=== PATIENT | male | born 1955 | race African-American/Black ===

== ENCOUNTER 2019-09-17 20:32 | Inpatient (IN) ==
[2019-09-17] MEDS ORDERED: 0.9 % Sodium Chloride 1,000 ML IVC ONE (20:39)
[2019-09-17] MEDS ORDERED: methylPREDNISolone 125 MG/2 ML VIAL IVP ONE (20:39)
[2019-09-17] MEDS ORDERED: Ipratropium/Albuterol Neb 3 ML IH ONE (20:39)
[2019-09-17] MEDS ORDERED: levoFLOXacin 750 MG/150 ML 750 MG/150 ML BAG IVPB ONE (20:54)
[2019-09-17 20:56] LABS: Basophils # 0.1 K/mcL (0.0-0.2); Basophils % 0.7 %; Eosinophils # 0.1 K/mcL (0.0-0.6); Eosinophils % 1.3 %; Hematocrit 37.8 % (37.5-50.1); Immature Granulocytes % 0.6 % (0-4); Lymphocytes # 1.8 K/mcL (0.6-4.6); Lymphocytes % 21.1 %; Mean Corpuscular HGB Conc 34.4 g/dL (31.6-35.5); Mean Corpuscular Hemoglobin 30.3 pg (28.0-33.3); Mean Corpuscular Volume 88.1 fL (83.0-100.0); Mean Platelet Volume 10.2 fL (9.4-12.4); Monocytes # 0.7 K/mcL (0.0-1.3); Monocytes % 7.6 %; Neutrophils # 5.9 K/mcL (1.6-8.9); Platelet Count 293 K/mcL (140-400); Red Blood Count 4.29 M/mcL (4.19-5.50); Segmented Neutrophils % 68.7 %; White Blood Count 8.5 K/mcL (4.3-11.1)
[2019-09-17 21:17] LABS: Calcium 9.3 mg/dL (8.6-10.3); Potassium 3.5 mEq/L (3.5-5.1)
[2019-09-17] MEDS ORDERED: *HR* OxyCODONE/APAP 5/325 TABLET PO ONE (21:31)
[2019-09-17] MEDS ORDERED: Albuterol 2.5 MG/3 ML NEBULIZER IH PRN (22:41)
[2019-09-17] MEDS ORDERED: Naloxone 0.4 MG/ML INJ IVP PRN (22:41)
[2019-09-18] MEDS: 0.9 % Sodium Chloride 1,000 ML IVC SCH ×2 (00:15→06:52)
[2019-09-18] MEDS: MethylPREDNISolone 40 MG/ML VIAL IVP SCH ×4 (00:34→17:48)
[2019-09-18] MEDS: Ipratropium/Albuterol Neb 3 ML IH SCH ×6 (00:55→20:41)
[2019-09-18] MEDS: *HR* OxyCODONE/APAP 10/325 TABLET PO PRN ×3 (03:15→17:48)
[2019-09-18] MEDS: Gabapentin 400 MG CAPSULE PO SCH ×3 (09:08→21:04)
[2019-09-18] MEDS: hydrALAZINE 25 MG TABLET PO SCH ×3 (09:08→21:04)
[2019-09-18] MEDS: amLODIPine 5 MG TABLET PO SCH (09:08)
[2019-09-18] MEDS: cefTRIAXone 1,000 MG in 0.9 % Sodium Chloride Mini Bag 100 ML IVPB SCH (09:08)
[2019-09-18] MEDS: Azithromycin 500 MG in 0.9 % Sodium Chloride 250 ML IVPB SCH (09:09)
[2019-09-18] MEDS: Losartan/HCTZ 50-12.5 TABLET PO SCH (09:48)
[2019-09-18] MEDS: Benzonatate 100 MG CAPSULE PO PRN ×2 (14:18→22:10)
[2019-09-18] MEDS: Nicotine 21 MG PATCH.TD24 TD SCH (14:21)
[2019-09-18] MEDS ORDERED: levoFLOXacin 750 MG/150 ML 750 MG/150 ML BAG IVPB SCH (18:00)
[2019-09-18] MEDS: Diclofenac Sodium (DR) 50 MG TABLET.DR PO SCH (21:04)
[2019-09-18] MEDS: Ondansetron ODT 4 MG TAB.RAPDIS SL PRN (21:07)
[2019-09-18] MEDS: Acetaminophen 325 MG TABLET PO PRN (22:10)
[2019-09-19] MEDS: Ipratropium/Albuterol Neb 3 ML IH SCH ×3 (00:37→07:40)
[2019-09-19] MEDS: MethylPREDNISolone 40 MG/ML VIAL IVP SCH ×2 (02:52→06:10)
[2019-09-19] MEDS: Acetaminophen 325 MG TABLET PO PRN (05:09)
[2019-09-19] MEDS: Nicotine 21 MG PATCH.TD24 TD SCH (07:54)
[2019-09-19] MEDS: Losartan/HCTZ 50-12.5 TABLET PO SCH (07:54)
[2019-09-19] MEDS: cefTRIAXone 1,000 MG in 0.9 % Sodium Chloride Mini Bag 100 ML IVPB SCH (07:55)
[2019-09-19] MEDS: Gabapentin 400 MG CAPSULE PO SCH ×2 (07:56→15:10)
[2019-09-19] MEDS: hydrALAZINE 25 MG TABLET PO SCH ×2 (07:56→12:35)
[2019-09-19] MEDS: amLODIPine 5 MG TABLET PO SCH (07:56)
[2019-09-19] MEDS: Diclofenac Sodium (DR) 50 MG TABLET.DR PO SCH (07:56)
[2019-09-19] MEDS: *HR* OxyCODONE/APAP 10/325 TABLET PO PRN ×2 (07:57→18:14)
[2019-09-19 08:04] LABS: Hematocrit 36.1 % (37.5-50.1); Hemoglobin 12.2 g/dL (12.9-16.9); Mean Corpuscular HGB Conc 33.8 g/dL (31.6-35.5); Mean Corpuscular Hemoglobin 29.9 pg (28.0-33.3); Mean Corpuscular Volume 88.5 fL (83.0-100.0); Mean Platelet Volume 10.4 fL (9.4-12.4); Platelet Count 320 K/mcL (140-400); Red Blood Count 4.08 M/mcL (4.19-5.50); Red Cell Distribution Width 13.4 % (11.5-14.5); White Blood Count 18.5 K/mcL (4.3-11.1)
[2019-09-19] MEDS: Benzonatate 100 MG CAPSULE PO PRN (08:12)
[2019-09-19] MEDS: Ondansetron ODT 4 MG TAB.RAPDIS SL PRN (08:12)
[2019-09-19 08:15] LABS: BUN/Creatinine Ratio 13 (6-26); Blood Urea Nitrogen 17 mg/dL (8-23); Calcium 9.1 mg/dL (8.6-10.3); Carbon Dioxide 28 mEq/L (23-29); Chloride 106 mEq/L (98-107); Glucose 145 mg/dL (70-105); Osmolality,Calculated 298 (280-300); Potassium 3.7 mEq/L (3.5-5.1); Sodium 142 mEq/L (136-145); eGFR For African Americans > 60 (> 60); eGFR For Non-African Americans 56 (> 60)
[2019-09-19] MEDS: Azithromycin 500 MG in 0.9 % Sodium Chloride 250 ML IVPB SCH (08:35)
[2019-09-19] MEDS ORDERED: Dextrose Gel 15 GM/37.5 ML TUBE PO PRN ×2 (08:44)
[2019-09-19] MEDS ORDERED: *HR* Dextrose 50 % in Water (Syg) 50 ML SYRINGE IVP PRN (08:44)
[2019-09-19] MEDS ORDERED: D5% in Water 1,000 ML IVC PRN (08:44)
[2019-09-19] MEDS ORDERED: 0.9 % Sodium Chloride 1,000 ML IVC ONE ×2 (09:48→16:28)
[2019-09-19] MEDS ORDERED: Levalbuterol Neb 1.25 MG/3 ML IH PRN (10:17)
[2019-09-19] MEDS: 0.9 % Sodium Chloride 1,000 ML IVC SCH ×2 (11:00→18:12)
[2019-09-19] MEDS ORDERED: SUMAtriptan succinate 25 MG TABLET PO ONE (11:22)
[2019-09-19] MEDS: Insulin LISPRO 300 UNITS/3 ML VIAL SQ SCH ×2 (12:26→16:06)
[2019-09-19] MEDS ORDERED: MethylPREDNISolone 40 MG/ML VIAL IVP SCH (16:00)
[2019-09-19] MEDS ORDERED: Nitroglycerin 0.4 MG TAB.SUBL SL PRN (16:20)
[2019-09-19] MEDS ORDERED: Aspirin 325 MG TABLET PO SCH (16:30)
[2019-09-19] MEDS ORDERED: Fenofibrate 54 MG TABLET PO SCH (16:30)
[2019-09-19] MEDS ORDERED: *HR* Heparin 5,000 UNIT/ML VIAL IVP PRN ×2 (16:39)
[2019-09-19] MEDS ORDERED: *HR* Heparin 5,000 UNIT/ML VIAL IVP ONE (16:39)
[2019-09-19] MEDS ORDERED: Heparin 25,000 UNIT/250 ML D5W 25,000 UNIT/250 ML IV.SOLN IVC SCH (16:45)
[2019-09-19 17:02] VITALS: BP 186/92
[2019-09-19] MEDS ORDERED: hydrALAZINE 25 MG TABLET PO ONE (17:43)
[2019-09-19] MEDS ORDERED: Metoprolol XL (24 HR) Succ 50 MG TAB.ER.24H PO SCH (21:00)
[2019-09-19 22:09] LABS: Adenovirus Not Detected (Not Detect); Bordetella Pertussis Not Detected (Not Detect); Chlamydophila pneumoniae Not Detected (Not Detect); Coronavirus 229E Not Detected (Not Detect); Coronavirus HKU1 Not Detected (Not Detect); Coronavirus NL63 Not Detected (Not Detect); Coronavirus OC43 Not Detected (Not Detect); Human Metapneumovirus Not Detected (Not Detect); Human Rhinovirus/Enterovirus DETECTED (Not Detect); Influenza A Subtype 2009 H1 Not Detected (Not Detect); Influenza B Not Detected (Not Detect); Mycoplasma pneumoniae Not Detected (Not Detect); Parainfluenza Virus 1 Not Detected (Not Detect); Parainfluenza Virus 2 Not Detected (Not Detect); Parainfluenza Virus 3 Not Detected (Not Detect); Parainfluenza Virus 4 Not Detected (Not Detect); Respiratory Syncytial Virus Not Detected (Not Detect)
[2019-09-20] MEDS ORDERED: *HR* Enoxaparin 40 MG/0.4 ML SYRINGE SQ SCH (06:00)
== END 2019-09-19 18:31 | disposition short-term general hospital (02) | DRG 140 ==
LOC: EMEROOPIK 20:32 → INPPIK 20:32
PROVIDERS: ADMIT Family Medicine; ATTEND Family Medicine